=== PATIENT | female | born 1935 | race Hispanic/Latino ===

== ENCOUNTER 2020-12-20 16:09 | Emergency (ER) | payer MEDICARE ==
[~2020-12-20] VITALS: Ht 157.5 cm; Wt 117.9 kg
[2020-12-20 17:00] VITALS: BP 182/83
== END 2020-12-20 17:51 | disposition left against medical advice (07) ==
LOC: EDH 16:09
DX: T82.110A Breakdown (mechanical) of cardiac electrode, initial encounter (principal); E11.9 Type 2 diabetes mellitus without complications; E78.00 Pure hypercholesterolemia, unspecified; I10 Essential (primary) hypertension; Z95.0 Presence of cardiac pacemaker; Y83.8 Other surgical procedures as the cause of abnormal reaction of the patient, or of later complication, without mention of misadventure at the time of the procedure; Y92.89 Other specified places as the place of occurrence of the external cause
CPT/HCPCS: 93005